=== PATIENT | male | born 1955 | race Caucasian/White ===

== ENCOUNTER → 2017-01-09 | Outpatient (CLI) | payer OTHER ==
[2017-01-09 10:17] LABS: ABSOLUTE BASOPHILS # (AUTO) 0.1 10^3/uL (0.0-0.2); ABSOLUTE EOSINOPHILS # (AUTO) 0.1 10^3/uL (0.0-0.6); ABSOLUTE LYMPHOCYTES (AUTO) 1.5 10^3/uL (0.5-4.7); ABSOLUTE MONOCYTES (AUTO) 0.7 10^3/uL (0.1-1.4); ABSOLUTE NEUT (AUTO) 4.4 10^3/uL (1.7-8.2); BASOPHILS % (AUTO) 0.9 % (0-2); EOSINOPHILS % (AUTO) 1.7 % (0-6); HEMATOCRIT 41.6 % (37.9-51.0); HEMOGLOBIN 13.9 g/dL (13.5-17.0); HGB HCT DIFFERENCE 0.1; LYMPHOCYTES % (AUTO) 22.1 % (13-45); MEAN CORPUSCULAR HGB CONC 33.4 g/dL (32.0-36.0); MEAN CORPUSCULAR VOLUME 99 fl (80-97); MONOCYTES % (AUTO) 10.3 % (3-13); RED BLOOD COUNT 4.21 10^6/uL (4.35-5.55); RED CELL DISTRIBUTION WIDTH 13.3 % (11.5-14.0); WHITE BLOOD COUNT 6.8 10^3/uL (4.0-10.5)
[2017-01-09 11:27] LABS: ALANINE AMINOTRANSFERASE 30 U/L (21-72); ALBUMIN 4.3 g/dL (3.5-5.0); ALKALINE PHOSPHATASE 64 U/L (38-126); ANION GAP 8 (5-19); ASPARTATE AMINO TRANSFERASE 29 U/L (17-59); BLOOD UREA NITROGEN 17 mg/dL (7-20); CALCIUM 9.9 mg/dL (8.4-10.2); CARBON DIOXIDE 27 mmol/L (22-30); CHLORIDE 105 mmol/L (98-107); CHOLESTEROL 244.14 mg/dL (0-200); CREATININE RESULT 0.82 mg/dL (0.52-1.25); Direct HDL 104 mg/dL (>40); GLUCOSE 99 mg/dL (75-110); MAGNESIUM 1.9 mg/dL (1.6-2.3); PHOSPHORUS 3.5 mg/dL (2.5-4.5); POTASSIUM 4.5 mmol/L (3.6-5.0); SODIUM 139.9 mmol/L (137-145); TOTAL PROTEIN 7.6 g/dL (6.3-8.2); TRIGLYCERIDES 56 mg/dL (<150)
[2017-01-09 11:37] LABS: DIRECT LDL 116 mg/dL (<100)
[2017-01-09 11:48] LABS: BILIRUBIN,TOTAL 0.5 mg/dL (0.2-1.3)
[2017-01-09 12:31] LABS: BILIRUBIN,DIRECT 0.5 mg/dL (0.0-0.4)
== END ==
LOC: CCC 08:54
DX: J44.9 Chronic obstructive pulmonary disease, unspecified (principal); Z00.00 Encounter for general adult medical examination without abnormal findings
CPT/HCPCS: 36415; 80053; 80061; 83036; 83735; 84100; 84153; 84443; 85025

== ENCOUNTER → 2017-03-06 | Outpatient (CLI) | payer OTHER ==
--- NOTE | 2017-03-06 11:40 | RADIOLOGY REPORT (SQ) ---
EXAM DESCRIPTION: CHEST PA/LATERAL COMPLETED DATE/TIME: 03/06/2017 11:08 am REASON FOR STUDY: COPD COMPARISON: 03/08/2015 EXAM PARAMETERS: NUMBER OF VIEWS: two views TECHNIQUE: Digital Frontal and Lateral radiographic views of the chest acquired. RADIATION DOSE: NA LIMITATIONS: none FINDINGS: LUNGS AND PLEURA: Lungs are hyperinflated and hyperlucent. Flattening in the hemidiaphrag ms. Stable biapical pleural-parenchymal scarring. MEDIASTINUM AND HILAR STRUCTURES: No masses or contour abnormalities. HEART AND VASCULAR STRUCTURES: Heart normal size. No evidence for failure. BONES: Old healed right posterolateral 6th 7th and 8th rib fractures. Bones osteopenic HARDWARE: None in the chest. OTHER: No other significant finding. IMPRESSION: Obstructive lung disease. No acute findings TECHNICAL DOCUMENTATION: JOB ID: [id number] [employer]- All Rights Reserved
== END ==
LOC: OD 10:58
DX: J44.9 Chronic obstructive pulmonary disease, unspecified (principal)
CPT/HCPCS: 71020

== ENCOUNTER → 2017-12-22 | Outpatient (CLI) | payer MEDICARE ==
--- NOTE | 2017-12-22 14:07 | RADIOLOGY REPORT (SQ) ---
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 TECHNIQUE: Grayscale ultrasound, Doppler velocity and spectra, and color Doppler images acquired of the extra-cranial carotid and vertebral arteries. Images stored on PACS. LIMITATIONS: None. FINDINGS: RIGHT CAROTID CCA Velocities: Within normal limits. ICA Velocities Peak systolic 0.78 m/s. End diastolic 0.23 m/s. Proximal ICA/CCA peak systolic ratio 0.86. Spectra normal. No significant plaque. LEFT CAROTID CCA Velocities: Within normal limits. ICA Velocities Peak systolic 0.63 m/s. End diastolic 0.33 m/s. Proximal ICA/CCA peak systolic ratio 0.87. Spectra normal. No significant plaque. VERTEBRAL ARTERIES: Antegrade flow. Normal waveforms. SUBCLAVIAN ARTERIES: No finding. OTHER: No other significant finding. IMPRESSION: NO HEMODYNAMICALLY SIGNIFICANT STENOSIS. COMMENT: Quality ID #[id number]: Velocity criteria are extrapolated from the diameter data as defined by t he Society of Radiologists in Ultrasound Consensus Conference. Radiology 2003: 229; 340-346. TECHNICAL DOCUMENTATION: JOB ID: [id number] [employer]- All Rights Reserved Reading location - IP/workstation name: [email or web address]
== END ==
LOC: SP 12:40
PROVIDERS: ATTEND Ophthalmology
DX: H34.232 Retinal artery branch occlusion, left eye (principal)
CPT/HCPCS: 93880

== ENCOUNTER → 2018-05-24 | Outpatient (CLI) | payer MEDICARE ==
[2018-05-26 11:37] LABS: ANTICHROMATIN AB <0.2 AI (0.0-0.9); CENTROMERE B AB <0.2 AI (0.0-0.9); JO-1 ANTIBODY (ANACOMP) <0.2 AI (0.0-0.9); SJOGREN'S ANTI-SS-B AB <0.2 AI (0.0-0.9); SJOGREN'S SS-A ANTIBODY <0.2 AI (0.0-0.9)
[2018-05-26 15:51] LABS: DNA DOUBLE STRAND ANTIBODY ANA 1 IU/mL (0-9)
[2018-05-26 17:36] LABS: CYTOPLASMIC (C-ANCA) <1:20 titer (Neg:<1:20)
[2018-05-27 07:10] LABS: ATYPICAL PANCA <1:20 titer (Neg:<1:20); PERINUCLEAR (P-ANCA) <1:20 titer (Neg:<1:20)
== END ==
LOC: OD 10:18
PROVIDERS: ATTEND Internal Medicine Pulmonary Disease
DX: R06.00 Dyspnea, unspecified (principal)
CPT/HCPCS: 36415; 86021; 86225; 86235; 86430

== ENCOUNTER → 2018-05-24 | Outpatient (CLI) | payer MEDICAID, MEDICARE ==
--- NOTE | 2018-05-24 10:55 | RADIOLOGY REPORT (SQ) ---
EXAM DESCRIPTION: CT CHEST WITHOUT COMPLETED DATE/TIME: 05/24/2018 10:04 am REASON FOR STUDY: COUGH (R05) R05 COUGH COMPARISON: None. TECHNIQUE: CT scan performed of the chest without intravenous contrast. Images reviewed with lung, soft tissue and bone windows. Reconstructed coronal and sagittal MPR images reviewed. All images st ored on PACS. All CT scanners at this facility use dose modulation, iterative reconstruction, and/or weight based d osing when appropriate to reduce radiation dose to as low as reasonably achievable (ALARA). [facility]: Dose Right [facility]: CareDose [facility]: Dose Right [facility]: Teradose 4D [facility]: [employer] RADIATION DOSE: CT Rad equipment meets quality standard of care and radiation dose reduction techniq ues were employed. CTDIvol: 3.7 mGy. DLP: 169 mGy-cm. mGy. LIMITATIONS: No technical limitations. FINDINGS: LUNGS AND PLEURA: Hyperinflation. Diffuse centrilobular emphysema. Mild scarring in the lung apices. No masses, infiltrates, or pneumothorax. No pleural effusions or pleural calcification s. HILAR AND MEDIASTINAL STRUCTURES: No identified masses or abnormal nodes. No obvious aneurysm. HEART AND VASCULAR STRUCTURES: No aneurysm. No pericardial effusion. UPPER ABDOMEN: No significant findings. Limited exam. THYROID AND OTHER SOFT TISSUES: No masses. No adenopathy. BONES: No significant finding. HARDWARE: None in the chest. OTHER: No other significant findings. IMPRESSION: DIFFUSE EMPHYSEMATOUS CHANGES WITH MILD SCARRING IN THE LUNG APICES. NO ACUTE OR OTHER SIGNIFICANT FINDINGS. TECHNICAL DOCUMENTATION: JOB ID: [id number] Quality ID # [id number]: Final reports with documentation of one or more dose reduction techniques (e.g., Au tomated exposure control, adjustment of the mA and/or kV according to patient size, use of iterative reconstruction technique) 2010 [employer]- All Rights Reserved Reading location - IP/workstation name: [email or web address]
== END ==
LOC: RAD 09:40
PROVIDERS: ATTEND Internal Medicine Pulmonary Disease
DX: J43.2 Centrilobular emphysema (principal); R05 Cough
CPT/HCPCS: 71250

== ENCOUNTER → 2019-06-03 | Outpatient (CLI) | payer MEDICARE ==
--- NOTE | 2019-06-03 15:07 | RADIOLOGY REPORT (SQ) ---
EXAM DESCRIPTION: CT LUNG CANCER SCREENING COMPLETED DATE/TIME: 06/03/2019 9:24 am REASON FOR STUDY: PERSONAL HX OF NICOTINE DEPENDENCE Z87.891 PERSONAL HISTORY OF NICOTINE DEPENDENC E Has the patient had a Chest CT scan within the past year? N Was the patient offered tobacco cessation counseling? N Was the patient engaged in shared decision making for this test? Y Does the patient have signs or symptoms of Lung Cancer? N Is the patient a smoker? N How many pack years? 54 How many years since quitting smoking? 2 Patients age: 64 COMPARISON: 05/24/2018. TECHNIQUE: Low Dose CT scan performed of the chest without intravenous contrast for purposes of scre ening for lung cancer. Images reviewed with lung, soft tissue and bone windows. Reconstructed coron al and sagittal MPR images reviewed. All images stored on PACS. All CT scanners at this facility use dose modulation, iterative reconstruction, and/or weight based d osing when appropriate to reduce radiation dose to as low as reasonably achievable (ALARA). [facility]: Dose Right [facility]: CareDose [facility]: Dose Right [facility]: Teradose 4D [facility]: [employer] RADIATION DOSE: CT Rad equipment meets quality standard of care and radiation dose reduction techniq ues were employed. CTDIvol: 2.0 mGy. DLP: 90 mGy-cm. mGy. . LIMITATIONS: No technical limitations. FINDINGS: LUNG NODULES: Description: New solid nodule in the right upper lobe (image 77). Size: 4 mm REMAINING LUNGS AND PLEURA: No pleural effusions or calcifications. No pneumothorax. Severe pul monary emphysema is stable. HILAR AND MEDIASTINAL STRUCTURES: No identified masses. No abnormal nodes. HEART AND VASCULAR STRUCTURES: No aortic aneurysm. No pericardial effusion. No cardiac devices. CORONARY ARTERY CALCIFICATIONS: No significant calcifications. UPPER ABDOMEN: No significant findings. THYROID AND OTHER SOFT TISSUES: No masses. No adenopathy. BONES: No significant finding. OTHER: No other significant findings. IMPRESSION: New 4 mL noncalcified solid nodule in the right upper lobe. A short-term interval follo w-up CT of the chest in 6 months is recommended to confirm stability. NO OTHER CLINICALLY SIGNIFICANT/POTENTIALLY CLINICALLY SIGNIFICANT FINDINGS LUNGRADS: LUNGRADS: 3, PROBABLY BENIGN. PROBABLY BENIGN FINDING(S)- SHORT TERM FOLLOW UP SUGGESTED; INCLUDES NODULES WITH A LOW LIKELIHOOD OF BECOMING A CLINICALLY ACTIVE CANCER. MODIFIER: NONE. RECOMMENDATION: Followup LDCT in 6 months. COMMENT: CRITERIA: Solid nodule(s): ? 6 mm to < 8 mm at baseline OR new 4 mm to < 6 mm. Part solid nodule(s): ? 6 mm total diameter with solid component < 6 mm OR new < 6 mm total diameter . Non solid nodule(s) (GGN): ? [address] or new. TECHNICAL DOCUMENTATION: JOB ID: [id number] Quality ID # [id number]: Final reports with documentation of one or more dose reduction techniques (e.g., Au tomated exposure control, adjustment of the mA and/or kV according to patient size, use of iterative reconstruction technique) 2010 [facility] Rad[facility] Reading location - IP/workstation name: [email or web address]
== END ==
LOC: RAD 10:15
PROVIDERS: ATTEND Registered Nurse
DX: Z12.2 Encounter for screening for malignant neoplasm of respiratory organs (principal); Z87.891 Personal history of nicotine dependence; R91.1 Solitary pulmonary nodule
CPT/HCPCS: G0297

== ENCOUNTER → 2019-12-05 | Outpatient (CLI) | payer MEDICARE ==
--- NOTE | 2019-12-05 12:19 | RADIOLOGY REPORT (SQ) ---
EXAM DESCRIPTION: CT CHEST WITHOUT IMAGES COMPLETED DATE/TIME: 12/05/2019 9:57 am REASON FOR STUDY: SOLITARY PULMONARY NODULE R91.1 SOLITARY PULMONARY NODULE COMPARISON: 06/03/2019 TECHNIQUE: CT scan performed of the chest without intravenous contrast. Images reviewed with lung, soft tissue and bone windows. Reconstructed coronal and sagittal MPR images reviewed. All images st ored on PACS. All CT scanners at this facility use dose modulation, iterative reconstruction, and/or weight based d osing when appropriate to reduce radiation dose to as low as reasonably achievable (ALARA). [facility]: Dose Right [facility]: CareDose [facility]: Dose Right [facility]: Teradose 4D [facility]: [employer] RADIATION DOSE: CT Rad equipment meets quality standard of care and radiation dose reduction techniq ues were employed. CTDIvol: 3.6 mGy. DLP: 165 mGy-cm. mGy. LIMITATIONS: No technical limitations. FINDINGS: LUNGS AND PLEURA: Severe centrilobular emphysematous changes with large bullae. There is stable scarring in the lung apices right greater than left. The 4 mm nodule described on prior study in the right upper lobe is less apparent on today's exam. This appears to represent focal scar rath er than parenchymal nodule. No other significant findings. HILAR AND MEDIASTINAL STRUCTURES: No identified masses or abnormal nodes. No obvious aneurysm. HEART AND VASCULAR STRUCTURES: No aneurysm. No pericardial effusion. UPPER ABDOMEN: No significant findings. Limited exam. THYROID AND OTHER SOFT TISSUES: No masses. No adenopathy. BONES: No significant finding. HARDWARE: None in the chest. OTHER: No other significant findings. IMPRESSION: Severe COPD. No suspicious pulmonary nodules. Small nodule previously described in the right upper lobe is most consistent with scar. It is less apparent on today's study. TECHNICAL DOCUMENTATION: JOB ID: [id number] Quality ID # [id number]: Final reports with documentation of one or more dose reduction techniques (e.g., Au tomated exposure control, adjustment of the mA and/or kV according to patient size, use of iterative reconstruction technique) 2010 [employer]- All Rights Reserved Reading location - IP/workstation name: [email or web address]
== END ==
LOC: RAD 09:49
PROVIDERS: ATTEND Internal Medicine Pulmonary Disease
DX: R91.1 Solitary pulmonary nodule (principal); J43.2 Centrilobular emphysema
CPT/HCPCS: 71250